=== PATIENT | male | born 1975 | race Caucasian/White ===

== ENCOUNTER 2021-05-10 14:29 | Inpatient (IN) | payer OTHER ==
[2021-05-10] MEDS ORDERED: MAGNESIUM HYDROX 2400MG/30ML ORAL SUSPENSION 30 ML CUP PO PRN (14:48)
[2021-05-10] MEDS ORDERED: ACETAMINOPHEN 325 MG TABLET (FP) PO PRN ×2 (14:48)
[2021-05-10] MEDS ORDERED: methaDONE HCL 10 MG TABLET (FOR DETOX USE ONLY) PO ONE ×2 (14:48→21:00)
[2021-05-10] MEDS ORDERED: MENTHOL/PHENOL 1 EACH UD MM PRN (14:48)
[2021-05-10] MEDS ORDERED: MAGNESIUM CITRATE 300 ML BOTTLE PO PRN (14:48)
[2021-05-10] MEDS ORDERED: ONDANSETRON *ODT* 4 MG TABLET SL PRN (14:48)
[2021-05-10] MEDS ORDERED: IBUPROFEN 400 MG TABLET (FP) PO PRN (14:48)
[2021-05-10] MEDS ORDERED: cloNIDine HCL 0.1 MG TABLET PO PRN (14:48)
[2021-05-10] MEDS ORDERED: NICOTINE 10 MG CARTRIDGE (INHALER) IH PRN (14:48)
[2021-05-10] MEDS ORDERED: MAG HYDROX/AL HYDROX/SIMETH 30 ML UNIT-DOSE CUP PO PRN (14:48)
[2021-05-10] MEDS ORDERED: BISMUTH SUBSALICYLATE 524 MG/30 ML PO PRN (14:48)
[2021-05-10 15:04] VITALS: BMI 24.3
[2021-05-10] MEDS: MELATONIN 5 MG TABLETS PO SCH (23:30)
[2021-05-10] MEDS: hydrOXYzine PAMOATE 25 MG CAPSULE (FP) PO SCH ×2 (23:30→23:35)
[2021-05-10] MEDS: METHOCARBAMOL 500 MG TABLET PO PRN (23:32)
[2021-05-10] MEDS: THIAMINE HCL 100 MG TABLET (FP) PO SCH (23:34)
[2021-05-10] MEDS: NICOTINE 14 MG/24 HOURS TOPICAL PATCH TD SCH (23:34)
[2021-05-10] MEDS: PRENATAL VITAMINS W/ FOLIC ACID TABLET (FP) PO SCH (23:34)
[2021-05-11] MEDS: diazePAM 5 MG TABLET PO PRN (00:58)
[2021-05-11] MEDS: diazePAM 5 MG TABLET PO SCH ×4 (05:22→22:18)
[2021-05-11] MEDS: hydrOXYzine PAMOATE 25 MG CAPSULE (FP) PO SCH ×5 (05:23→22:37)
[2021-05-11] MEDS ORDERED: methaDONE HCL 10 MG TABLET PO ONE (09:30)
[2021-05-11] MEDS ORDERED: methaDONE HCL 40 MG DISPERSABLE TABLET ONE (10:03)
[2021-05-11] MEDS ORDERED: methaDONE HCL 10 MG TABLET ONE (10:03)
[2021-05-11] MEDS: PRENATAL VITAMINS W/ FOLIC ACID TABLET (FP) PO SCH (10:10)
[2021-05-11] MEDS: NICOTINE 14 MG/24 HOURS TOPICAL PATCH TD SCH (10:10)
[2021-05-11 10:41] LABS: HEMOGLOBIN 15.1 GM/dL (11.7-16.9); MCH 31.1 pg (25.7-33.7); MCHC 34.3 g/dl (32.0-35.9); MEAN CELL VOLUME 90.6 fl (80-96); MEAN PLT VOLUME 9.2 fl (7.5-11.1); PLATELET COUNT 216 10^3/uL (134-434); RBC 4.86 M/mm3 (4.00-5.60); RDW 15.1 % (11.9-15.9); WHITE BLOOD COUNT 5.2 K/mm3 (4.0-10.0)
[2021-05-11 10:44] LABS: BLOOD UREA NITROGEN 10.3 mg/dL (7-18)
[2021-05-11 10:45] LABS: ALBUMIN 4.2 g/dl (3.4-5.0)
[2021-05-11 10:48] LABS: BILIRUBIN,TOTAL 0.5 mg/dL (0.2-1); CREATININE 0.7 mg/dL (0.55-1.3); TOT PROT 7.4 g/dl (6.4-8.2)
[2021-05-11] MEDS: THIAMINE HCL 100 MG TABLET (FP) PO SCH (22:18)
[2021-05-11] MEDS: MELATONIN 5 MG TABLETS PO SCH (22:19)
[2021-05-11] MEDS: METHOCARBAMOL 500 MG TABLET PO PRN (22:19)
[2021-05-12] MEDS ORDERED: methaDONE HCL 10 MG TABLET ONE (04:25)
[2021-05-12] MEDS ORDERED: methaDONE HCL 40 MG DISPERSABLE TABLET ONE (04:26)
[2021-05-12] MEDS: hydrOXYzine PAMOATE 25 MG CAPSULE (FP) PO SCH ×5 (05:21→22:24)
[2021-05-12] MEDS: diazePAM 5 MG TABLET PO SCH ×3 (05:22→22:23)
[2021-05-12] MEDS ORDERED: methaDONE HCL 10 MG TABLET PO ONE (06:00)
[2021-05-12] MEDS ORDERED: methaDONE HCL 10 MG TABLET (FOR DETOX USE ONLY) PO ONE (10:00)
[2021-05-12] MEDS: NICOTINE 14 MG/24 HOURS TOPICAL PATCH TD SCH (10:07)
[2021-05-12] MEDS: PRENATAL VITAMINS W/ FOLIC ACID TABLET (FP) PO SCH (10:07)
[2021-05-12] MEDS: METHOCARBAMOL 500 MG TABLET PO PRN (17:20)
[2021-05-12] MEDS: diazePAM 5 MG TABLET PO PRN (19:52)
[2021-05-12] MEDS: MELATONIN 5 MG TABLETS PO SCH (22:23)
[2021-05-12] MEDS: THIAMINE HCL 100 MG TABLET (FP) PO SCH (22:23)
[2021-05-13] MEDS ORDERED: methaDONE HCL 40 MG DISPERSABLE TABLET ONE (04:29)
[2021-05-13] MEDS: diazePAM 5 MG TABLET PO SCH ×2 (05:32→18:08)
[2021-05-13] MEDS: hydrOXYzine PAMOATE 25 MG CAPSULE (FP) PO SCH ×5 (05:42→22:05)
[2021-05-13] MEDS ORDERED: methaDONE HCL 10 MG TABLET PO SCH (06:00)
[2021-05-13] MEDS: NICOTINE 14 MG/24 HOURS TOPICAL PATCH TD SCH (10:05)
[2021-05-13] MEDS: PRENATAL VITAMINS W/ FOLIC ACID TABLET (FP) PO SCH (10:05)
[2021-05-13] MEDS: diazePAM 5 MG TABLET PO PRN ×2 (13:44→22:06)
[2021-05-13] MEDS: MELATONIN 5 MG TABLETS PO SCH (22:05)
[2021-05-13] MEDS: THIAMINE HCL 100 MG TABLET (FP) PO SCH (22:05)
[2021-05-14] MEDS ORDERED: methaDONE HCL 40 MG DISPERSABLE TABLET ONE (04:14)
[2021-05-14] MEDS: hydrOXYzine PAMOATE 25 MG CAPSULE (FP) PO SCH (05:29)
[2021-05-14] MEDS ORDERED: diazePAM 5 MG TABLET PO ONE (06:00)
[2021-05-14 09:26] VITALS: BP 122/75; PULSE 94; TEMP 96
[2021-05-14] MEDS ORDERED: methaDONE HCL 10 MG TABLET (FOR DETOX USE ONLY) PO ONE (10:00)
== END 2021-05-14 09:22 | disposition home or self-care (01) | DRG 773 ==
LOC: YASAS 14:29 → Y3N 21:35
PROVIDERS: ADMIT Allergy & Immunology; ATTEND Allergy & Immunology
PROC: HZ2ZZZZ Detoxification Services for Substance Abuse Treatment (ICD-10-PCS; principal; 2021-05-10)
DX: F11.23 Opioid dependence with withdrawal (principal); F13.230 Sedative, hypnotic or anxiolytic dependence with withdrawal, uncomplicated; F17.210 Nicotine dependence, cigarettes, uncomplicated; F19.24 Other psychoactive substance dependence with psychoactive substance-induced mood disorder; N40.0 Benign prostatic hyperplasia without lower urinary tract symptoms; Z86.59 Personal history of other mental and behavioral disorders; Z91.14 Patient's other noncompliance with medication regimen
CPT/HCPCS: 36415; 80053; 85027; 86780; 93005; 93010; C9803; U0003; U0005